=== PATIENT | female | born 1970 | race Caucasian/White ===

== ENCOUNTER → 2016-11-29 | Emergency (ER) | payer OTHER ==
[~2016-11-29] VITALS: Ht 149.9 cm; Wt 83.1 kg
[~2016-11-29] MED LIST: CARAFATE1 GM PO; PRILOSEC OTC20 MG PO
[2016-11-29 11:35] LABS: BASOPHIL COUNT 0.1 K/uL (0-0.1); EOSINOPHIL (%) 1.1 % (0-5); EOSINOPHIL COUNT 0.1 K/uL (0-0.3); HEMATOCRIT 40.3 % (36.0-46.0); IMMATURE GRANULOCYTE (%) 0.5 % (0.0-0.7); IMMATURE GRANULOCYTE COUNT 0.5 K/uL; LYMPHOCYTE COUNT 2.1 K/uL (1.0-2.8); MCH 30.6 PG (29.0-34.0); MCHC 34.7 G/DL (30.0-36.0); MEAN PLAT.VOLUME 10.3 uM^3 (9.5-12.4); MONOCYTE (%) 5.8 % (3-12); MONOCYTE COUNT 0.6 K/uL (0-0.8); NEUTROPHIL COUNT 7.9 K/uL (1.8-6.4); PLATELET COUNT 322 K/uL (156-360); RBC DIS.WIDTH-CV 12.2 % (11.8-14.6); RBC DIS.WIDTH-SD 38.4 % (39-53); RED BLOOD COUNT 4.58 M/uL (3.80-5.20); WHITE BLOOD COUNT 10.8 K/uL (4.1-10.2)
[2016-11-29 11:46] LABS: CHLORIDE 104 mEq/L (99-109); POTASSIUM 3.9 mEq/L (3.7-5.4); SODIUM 138 mEq/L (136-147)
[2016-11-29 11:48] LABS: GLUCOSE 326 mg/dL (70-99)
[2016-11-29 11:49] LABS: ANION GAP 10 MEQ/L (2-14)
[2016-11-29 11:50] LABS: TOTAL BILIRUBIN 0.3 mg/dL (0.0-1.0)
[2016-11-29 11:52] LABS: ALKALINE PHOSPHATASE 72 IU/L (3-129); GFR ESTIMATE (CALCULATED) > 59 mL/min/
[2016-11-29 11:53] LABS: UREA NITROGEN (BUN) 12 mg/dL (9-23)
[2016-11-29 12:01] LABS: TROP-I INTERPRETATION NEGATIVE; TROPONIN-I < 0.01 ng/mL (0.0-0.30)
[2016-11-29 14:32] LABS: TROP-I INTERPRETATION NEGATIVE; TROPONIN-I < 0.01 ng/mL (0.0-0.30)
[2016-11-29 17:46] VITALS: BP 151/81
== END | disposition home or self-care (01) ==
LOC: EME 10:46
PROVIDERS: Emergency Medicine
DX: R07.9 Chest pain, unspecified (principal); Z88.1 Allergy status to other antibiotic agents; Z88.2 Allergy status to sulfonamides; E11.9 Type 2 diabetes mellitus without complications
CPT/HCPCS: 71010; 80053; 84484; 85025; 85379; 93005; 99281; 99285

== ENCOUNTER 2017-01-16 17:41 | Inpatient (IN) | payer OTHER ==
[~2017-01-16] VITALS: Ht 149.9 cm; Wt 82.0 kg
[2017-01-16 18:33] LABS: BASOPHIL COUNT 0.1 K/uL (0-0.1); EOSINOPHIL (%) 0.6 % (0-5); EOSINOPHIL COUNT 0.1 K/uL (0-0.3); HEMATOCRIT 43.1 % (36.0-46.0); IMMATURE GRANULOCYTE (%) 1.1 % (0.0-0.7); IMMATURE GRANULOCYTE COUNT 0.2 K/uL; LYMPHOCYTE COUNT 1.6 K/uL (1.0-2.8); MCH 29.8 PG (29.0-34.0); MCHC 33.2 G/DL (30.0-36.0); MCV 89.8 FL (83-99); MEAN PLAT.VOLUME 9.8 uM^3 (9.5-12.4); MONOCYTE (%) 9.5 % (3-12); MONOCYTE COUNT 1.9 K/uL (0-0.8); NEUTROPHIL (%) 80.4 % (45-76); PLATELET COUNT 449 K/uL (156-360); RBC DIS.WIDTH-CV 11.5 % (11.8-14.6); RBC DIS.WIDTH-SD 38.2 % (39-53); WHITE BLOOD COUNT 19.9 K/uL (4.1-10.2)
[2017-01-16 18:42] LABS: CHLORIDE 96 mEq/L (99-109); POTASSIUM 4.1 mEq/L (3.7-5.4); SODIUM 133 mEq/L (136-147)
[2017-01-16 18:44] LABS: GLUCOSE 330 mg/dL (70-99)
[2017-01-16 18:45] LABS: ANION GAP 14 MEQ/L (2-14)
[2017-01-16 18:48] LABS: GFR ESTIMATE (CALCULATED) > 59 mL/min/
[2017-01-16 18:49] LABS: UREA NITROGEN (BUN) 10 mg/dL (9-23)
[2017-01-16 20:20] LABS: QUANTITATIVE HCG < 4.0 MIU/ML
[2017-01-16 20:46] LABS: ADD MIUA? YES; BILIRUBIN NEGATIVE; BLOOD NEGATIVE; COLOR YELLOW ((YELLOW)); GLUCOSE (STRIP) >=500; KETONES 20; LEUKOCYTES SMALL; NITRITE NEGATIVE; PROTEIN (STRIP) 30; SPECIFIC GRAVITY 1.042 (1.000-1.030); UROBILINOGEN 0.2 MG/DL (0.2-1.0)
[2017-01-16 20:54] LABS: BACTERIA RARE /HPF; EPITHELIAL CELLS 1+ /HPF; MUCUS TRACE /LPF; UCUL ADDED? NO
[2017-01-16] MEDS ORDERED: BACTRIM,SEPT1 TABLET PO (21:19)
[2017-01-16] MEDS ORDERED: ADVIL,NUPRIN,M200 MG PO (21:20)
[2017-01-16 23:00] VITALS: BP 156/72
[2017-01-16 23:04] VITALS: BP 156/72
[2017-01-17 04:05] VITALS: BP 106/56
[2017-01-17 11:18] VITALS: BP 122/58
[2017-01-17 16:46] VITALS: BP 124/75
[2017-01-17 19:52] VITALS: BP 121/63
[2017-01-18 00:10] VITALS: BP 121/58
[2017-01-18 05:33] LABS: BASOPHIL COUNT 0.1 K/uL (0-0.1); EOSINOPHIL (%) 1.8 % (0-5); EOSINOPHIL COUNT 0.3 K/uL (0-0.3); HEMATOCRIT 34.8 % (36.0-46.0); IMMATURE GRANULOCYTE (%) 1.6 % (0.0-0.7); IMMATURE GRANULOCYTE COUNT 0.3 K/uL; INSTRUMENT ABS NEUTROPHIL CT 11.7 K/uL; LYMPHOCYTE COUNT 2.2 K/uL (1.0-2.8); MCH 29.4 PG (29.0-34.0); MCHC 32.5 G/DL (30.0-36.0); MCV 90.6 FL (83-99); MEAN PLAT.VOLUME 9.8 uM^3 (9.5-12.4); MONOCYTE (%) 8.6 % (3-12); MONOCYTE COUNT 1.4 K/uL (0-0.8); NEUTROPHIL (%) 73.9 % (45-76); NEUTROPHIL COUNT 11.7 K/uL (1.8-6.4); PLATELET COUNT 397 K/uL (156-360); RBC DIS.WIDTH-CV 11.5 % (11.8-14.6); RBC DIS.WIDTH-SD 38.4 % (39-53); RED BLOOD COUNT 3.84 M/uL (3.80-5.20); WHITE BLOOD COUNT 15.8 K/uL (4.1-10.2)
[2017-01-18 05:51] LABS: ANION GAP 10 MEQ/L (2-14); CHLORIDE 103 MEQ/L (99-109); GLUCOSE 289 mg/dL (70-99); POTASSIUM 3.6 MEQ/L (3.7-5.4); SAMPLE HEMOLYSIS CHECK 0; SAMPLE ICTERIC CHECK 0; SAMPLE LIPEMIA CHECK 0; SODIUM 136 MEQ/L (136-147); UREA NITROGEN (BUN) 8 mg/dL (9-23)
[2017-01-18 05:55] LABS: GFR ESTIMATE (CALCULATED) > 59 mL/min/
[2017-01-18 07:54] VITALS: BP 132/69
[2017-01-18 16:00] VITALS: BP 123/61
[2017-01-18 19:44] VITALS: BP 141/65
[2017-01-18 22:08] LABS: POINT-OF-CARE METER ID UU14149397
[2017-01-19 00:48] VITALS: BP 135/70
[2017-01-19 03:55] VITALS: BP 149/76
[2017-01-19 04:41] LABS: BASOPHIL COUNT 0.1 K/uL (0-0.1); EOSINOPHIL (%) 2.2 % (0-5); EOSINOPHIL COUNT 0.3 K/uL (0-0.3); HEMATOCRIT 34.3 % (36.0-46.0); IMMATURE GRANULOCYTE (%) 2.7 % (0.0-0.7); IMMATURE GRANULOCYTE COUNT 0.4 K/uL; INSTRUMENT ABS NEUTROPHIL CT 9.9 K/uL; LYMPHOCYTE COUNT 2.7 K/uL (1.0-2.8); MCH 29.5 PG (29.0-34.0); MCHC 33.2 G/DL (30.0-36.0); MCV 88.6 FL (83-99); MEAN PLAT.VOLUME 9.7 uM^3 (9.5-12.4); MONOCYTE (%) 9.4 % (3-12); MONOCYTE COUNT 1.4 K/uL (0-0.8); NEUTROPHIL (%) 66.9 % (45-76); NEUTROPHIL COUNT 9.9 K/uL (1.8-6.4); PLATELET COUNT 436 K/uL (156-360); RBC DIS.WIDTH-CV 11.5 % (11.8-14.6); RBC DIS.WIDTH-SD 36.6 % (39-53); RED BLOOD COUNT 3.87 M/uL (3.80-5.20); WHITE BLOOD COUNT 14.8 K/uL (4.1-10.2)
[2017-01-19 04:58] LABS: CHLORIDE 103 mEq/L (99-109); POTASSIUM 3.7 mEq/L (3.7-5.4); SODIUM 138 mEq/L (136-147)
[2017-01-19 04:59] LABS: GLUCOSE 240 mg/dL (70-99)
[2017-01-19 05:01] LABS: ANION GAP 10 MEQ/L (2-14)
[2017-01-19 05:03] LABS: GFR ESTIMATE (CALCULATED) > 59 mL/min/
[2017-01-19 05:04] LABS: UREA NITROGEN (BUN) 8 mg/dL (9-23)
[2017-01-19 07:35] VITALS: BP 129/60
[2017-01-19 09:25] LABS: POINT-OF-CARE METER ID UU14149397
[2017-01-19 12:06] LABS: POINT-OF-CARE METER ID UU14149397
[2017-01-19 14:52] VITALS: BP 118/59
[2017-01-19 16:15] LABS: POINT-OF-CARE METER ID UU14149397
[2017-01-19 20:57] VITALS: BP 152/76
[2017-01-19 22:10] LABS: POINT-OF-CARE METER ID UU14149397
[2017-01-19 23:13] VITALS: BP 126/66
[2017-01-20 06:22] VITALS: BP 133/65
[2017-01-20 09:53] LABS: POINT-OF-CARE METER ID UU13113675
[2017-01-20 11:18] LABS: BASOPHIL COUNT 0.1 K/uL (0-0.1); EOSINOPHIL (%) 2.3 % (0-5); EOSINOPHIL COUNT 0.3 K/uL (0-0.3); HEMATOCRIT 37.6 % (36.0-46.0); IMMATURE GRANULOCYTE COUNT 0.7 K/uL; INSTRUMENT ABS NEUTROPHIL CT 10.3 K/uL; LYMPHOCYTE COUNT 2.4 K/uL (1.0-2.8); MCH 29.4 PG (29.0-34.0); MCV 89.1 FL (83-99); MEAN PLAT.VOLUME 9.6 uM^3 (9.5-12.4); NEUTROPHIL (%) 69.4 % (45-76); NEUTROPHIL COUNT 10.3 K/uL (1.8-6.4); PLATELET COUNT 501 K/uL (156-360); RBC DIS.WIDTH-CV 11.5 % (11.8-14.6); RBC DIS.WIDTH-SD 37.2 % (39-53); RED BLOOD COUNT 4.22 M/uL (3.80-5.20); WHITE BLOOD COUNT 14.8 K/uL (4.1-10.2)
[2017-01-20 11:40] LABS: ANION GAP 9 MEQ/L (2-14); CHLORIDE 99 MEQ/L (99-109); GFR ESTIMATE (CALCULATED) > 59 mL/min/; GLUCOSE 250 mg/dL (70-99); POTASSIUM 3.6 MEQ/L (3.7-5.4); SAMPLE HEMOLYSIS CHECK 0; SAMPLE ICTERIC CHECK 0; SAMPLE LIPEMIA CHECK 0; SODIUM 135 MEQ/L (136-147); UREA NITROGEN (BUN) 8 mg/dL (9-23)
[2017-01-20 11:50] VITALS: BP 139/72
[2017-01-20 12:00] LABS: POINT-OF-CARE METER ID UU14149397
[2017-01-20 15:53] VITALS: BP 114/58
[2017-01-20 16:20] LABS: POINT-OF-CARE METER ID UU14149397
[2017-01-21 00:40] VITALS: BP 120/70
[2017-01-21 05:25] VITALS: BP 124/68
[2017-01-21 07:11] LABS: POINT-OF-CARE METER ID UU14149397
[2017-01-21 08:13] VITALS: BP 107/68
[2017-01-21 15:21] VITALS: BP 139/65
[2017-01-21 22:43] LABS: POINT-OF-CARE METER ID UU14149397
[2017-01-21 23:53] VITALS: BP 135/70
[2017-01-22 06:02] LABS: BASOPHIL COUNT 0.1 K/uL (0-0.1); EOSINOPHIL COUNT 0.4 K/uL (0-0.3); HEMATOCRIT 38.3 % (36.0-46.0); IMMATURE GRANULOCYTE COUNT 0.6 K/uL; INSTRUMENT ABS NEUTROPHIL CT 9.5 K/uL; LYMPHOCYTE COUNT 2.8 K/uL (1.0-2.8); MCH 29.2 PG (29.0-34.0); MCHC 32.4 G/DL (30.0-36.0); MCV 90.3 FL (83-99); MEAN PLAT.VOLUME 9.6 uM^3 (9.5-12.4); MONOCYTE (%) 8.1 % (3-12); MONOCYTE COUNT 1.2 K/uL (0-0.8); NEUTROPHIL (%) 65.4 % (45-76); NEUTROPHIL COUNT 9.5 K/uL (1.8-6.4); PLATELET COUNT 495 K/uL (156-360); RBC DIS.WIDTH-CV 11.8 % (11.8-14.6); RBC DIS.WIDTH-SD 38.5 % (39-53); RED BLOOD COUNT 4.24 M/uL (3.80-5.20); WHITE BLOOD COUNT 14.5 K/uL (4.1-10.2)
[2017-01-22 06:39] LABS: ANION GAP 9 MEQ/L (2-14); CHLORIDE 98 MEQ/L (99-109); GFR ESTIMATE (CALCULATED) > 59 mL/min/; GLUCOSE 211 mg/dL (70-99); SAMPLE HEMOLYSIS CHECK 0; SAMPLE ICTERIC CHECK 0; SAMPLE LIPEMIA CHECK 0; SODIUM 136 MEQ/L (136-147); UREA NITROGEN (BUN) 13 mg/dL (9-23)
[2017-01-22 06:40] LABS: POTASSIUM 4.5 MEQ/L (3.7-5.4)
[2017-01-22 06:54] LABS: POINT-OF-CARE METER ID UU14188577
[2017-01-22 08:26] VITALS: BP 122/60
[2017-01-22] MEDS ORDERED: DOXYCYCLINE HY100 MG PO (09:11)
[2017-01-22] MEDS ORDERED: NORCO 5/3251 TABLET PO (09:11)
[2017-01-22] MEDS ORDERED: TOLNAFTATE TP (09:11)
[2017-01-22 11:47] LABS: POINT-OF-CARE METER ID UU14188577
== END 2017-01-22 16:39 | disposition home health service (06) | DRG 348 ==
LOC: EME 17:41 → EDOF 21:16 → 3EAST 21:16
PROVIDERS: Emergency Medicine; Physician Assistant Surgical; Surgery
PROC: 0D9Q7ZZ Drainage of Anus, Via Natural or Artificial Opening (ICD-10-PCS; principal; 2017-01-17)
PROC: 0J9M3ZZ Drainage of Left Upper Leg Subcutaneous Tissue and Fascia, Percutaneous Approach (ICD-10-PCS; 2017-01-20)
DX: K61.0 Anal abscess (principal); L03.317 Cellulitis of buttock; L02.31 Cutaneous abscess of buttock; L02.416 Cutaneous abscess of left lower limb; E11.9 Type 2 diabetes mellitus without complications
CPT/HCPCS: 74177; 80048; 81003; 82948; 83605; 84702; 85025; 87040; 87070; 87075; 87076; 87077; 87147; 87186; 87205; 88305; 99281; 99285; J0690; J1815; J2250; J2270; J2405; J3010; J3370; J7030; J7050; S0020

== ENCOUNTER 2017-02-03 15:42 | Inpatient (IN) | payer OTHER ==
[~2017-02-03] VITALS: Ht 124.5 cm; Wt 84.0 kg
[~2017-02-03 15:42] MED LIST changes: +ADVIL,NUPRIN,M200 MG PO; +BACTRIM,SEPT1 TABLET PO; +DOXYCYCLINE HY100 MG PO; +NORCO 5/3251 TABLET PO; +TOLNAFTATE TP
[2017-02-03 16:31] LABS: HEMATOCRIT 42.7 % (36.0-46.0); MCH 29.4 PG (29.0-34.0); MCHC 32.6 G/DL (30.0-36.0); MCV 90.3 FL (83-99); PLATELET COUNT 387 K/uL (156-360); RBC DIS.WIDTH-CV 12.2 % (11.8-14.6); RBC DIS.WIDTH-SD 39.8 % (39-53); RED BLOOD COUNT 4.73 M/uL (3.80-5.20)
[2017-02-03 16:37] LABS: CHLORIDE 97 mEq/L (99-109); POTASSIUM 4.2 mEq/L (3.7-5.4); SODIUM 136 mEq/L (136-147)
[2017-02-03 16:39] LABS: GLUCOSE 369 mg/dL (70-99)
[2017-02-03 16:40] LABS: ANION GAP 18 MEQ/L (2-14)
[2017-02-03 16:43] LABS: GFR ESTIMATE (CALCULATED) 57 mL/min/
[2017-02-03 16:44] LABS: UREA NITROGEN (BUN) 13 mg/dL (9-23)
[2017-02-03] MEDS ORDERED: VIBRAMYCIN100 MG PO (17:47)
[2017-02-03 21:17] LABS: CREATINE KINASE 106 IU/L (1-294)
[2017-02-03 21:58] VITALS: BP 139/64
[2017-02-03 23:27] LABS: POINT-OF-CARE METER ID UU14162508
[2017-02-04 03:31] VITALS: BP 126/67
[2017-02-04 06:19] LABS: BASOPHIL COUNT 0.1 K/uL (0-0.1); EOSINOPHIL (%) 3.7 % (0-5); EOSINOPHIL COUNT 0.3 K/uL (0-0.3); HEMATOCRIT 34.7 % (36.0-46.0); IMMATURE GRANULOCYTE (%) 0.4 % (0.0-0.7); INSTRUMENT ABS NEUTROPHIL CT 5.1 K/uL; LYMPHOCYTE COUNT 1.8 K/uL (1.0-2.8); MCH 29.4 PG (29.0-34.0); MCV 91.8 FL (83-99); MONOCYTE (%) 9.1 % (3-12); MONOCYTE COUNT 0.7 K/uL (0-0.8); NEUTROPHIL (%) 63.9 % (45-76); NEUTROPHIL COUNT 5.1 K/uL (1.8-6.4); NRBC (%) 0.2 /100 WBC (0-0); PLATELET COUNT 343 K/uL (156-360); RBC DIS.WIDTH-CV 12.6 % (11.8-14.6); RBC DIS.WIDTH-SD 41.6 % (39-53)
[2017-02-04 06:38] LABS: ANION GAP 10 MEQ/L (2-14); CHLORIDE 103 MEQ/L (99-109); RED BLOOD COUNT 3.78 M/uL (3.80-5.20); SAMPLE HEMOLYSIS CHECK 0; SAMPLE ICTERIC CHECK 0; SAMPLE LIPEMIA CHECK 0; SODIUM 135 MEQ/L (136-147)
[2017-02-04 06:44] LABS: GFR ESTIMATE (CALCULATED) > 59 mL/min/; GLUCOSE 275 mg/dL (70-99); UREA NITROGEN (BUN) 13 mg/dL (9-23)
[2017-02-04 06:54] LABS: POINT-OF-CARE METER ID UU14162508
[2017-02-04 07:22] LABS: Estimated Average Glucose 278 mg/dL (70-123); HEMOGLOBIN A1c (GLYCOHEMOGLOB) 11.3 % HGB (Below 5.7)
[2017-02-04 08:35] VITALS: BP 128/60
[2017-02-04 11:40] VITALS: BP 127/68
[2017-02-04 12:29] LABS: POINT-OF-CARE METER ID UU14162508
[2017-02-04 15:40] VITALS: BP 132/70
[2017-02-04 16:20] LABS: POINT-OF-CARE METER ID UU14162508
[2017-02-04 20:46] VITALS: BP 128/69
[2017-02-04 21:36] LABS: POINT-OF-CARE METER ID UU14162508
[2017-02-05 00:25] VITALS: BP 160/84
[2017-02-05 04:16] VITALS: BP 122/75
[2017-02-05 06:37] LABS: HEMATOCRIT 36.5 % (36.0-46.0); MCH 29.9 PG (29.0-34.0); MCHC 33.2 G/DL (30.0-36.0); MCV 90.1 FL (83-99); MEAN PLAT.VOLUME 10.3 uM^3 (9.5-12.4); PLATELET COUNT 371 K/uL (156-360); RBC DIS.WIDTH-CV 12.3 % (11.8-14.6); RBC DIS.WIDTH-SD 40.4 % (39-53); RED BLOOD COUNT 4.05 M/uL (3.80-5.20); WHITE BLOOD COUNT 8.2 K/uL (4.1-10.2)
[2017-02-05 06:54] LABS: POINT-OF-CARE METER ID UU14162508
[2017-02-05 07:03] LABS: ANION GAP 11 MEQ/L (2-14); CHLORIDE 104 MEQ/L (99-109); GFR ESTIMATE (CALCULATED) > 59 mL/min/; GLUCOSE 138 mg/dL (70-99); POTASSIUM 3.5 MEQ/L (3.7-5.4); SAMPLE HEMOLYSIS CHECK 0; SAMPLE ICTERIC CHECK 0; SAMPLE LIPEMIA CHECK 0; SODIUM 138 MEQ/L (136-147); UREA NITROGEN (BUN) 10 mg/dL (9-23)
[2017-02-05 07:21] VITALS: BP 120/57
[2017-02-05 11:58] LABS: POINT-OF-CARE METER ID UU14162508
[2017-02-05 15:45] VITALS: BP 136/72
[2017-02-05 15:59] LABS: POINT-OF-CARE METER ID UU14162508
[2017-02-05 21:33] LABS: POINT-OF-CARE METER ID UU14162508
[2017-02-05 23:37] VITALS: BP 152/71
[2017-02-06 06:44] LABS: POINT-OF-CARE METER ID UU14162508
[2017-02-06 07:32] VITALS: BP 113/54
[2017-02-06 12:10] LABS: POINT-OF-CARE METER ID UU14162508
[2017-02-06] MEDS ORDERED: FLUCONAZOLE200 MG PO (13:05)
[2017-02-06] MEDS ORDERED: KEFLEX500 MG PO (13:05)
[2017-02-06] MEDS ORDERED: NYSTATIN15 GM TP (13:05)
[2017-02-06] MEDS ORDERED: LEVEMIR100 UNIT/2 SC (13:05)
[2017-02-06] MEDS ORDERED: ONE TOUCH ULTR1 EACH MC (13:07)
[2017-02-06] MEDS ORDERED: ONE TOUCH LANC1 EACH MC (13:07)
[2017-02-06] MEDS ORDERED: ONE TOUCH ULTR1 EAC4 MC (13:07)
[2017-02-06] MEDS ORDERED: VALTREX1000 MG PO (14:13)
[2017-02-06] MEDS ORDERED: INSULIN SYRING1 EA53 MC (15:06)
== END 2017-02-06 15:20 | disposition home or self-care (01) | DRG 394 ==
LOC: EME 15:42 → 2EAST 20:34 → EDOF 20:34 → 2EAST 21:57
PROVIDERS: Hospitalist; Internal Medicine; Physician Assistant
DX: K61.1 Rectal abscess (principal); E87.2 Acidosis; L02.31 Cutaneous abscess of buttock; Z68.43 Body mass index [BMI] 50.0-59.9, adult; B37.49 Other urogenital candidiasis; L29.0 Pruritus ani; E11.65 Type 2 diabetes mellitus with hyperglycemia; E66.9 Obesity, unspecified; K61.0 Anal abscess; B35.6 Tinea cruris; Z88.2 Allergy status to sulfonamides; Z88.3 Allergy status to other anti-infective agents; Z82.49 Family history of ischemic heart disease and other diseases of the circulatory system; Z83.3 Family history of diabetes mellitus; Z83.6 Family history of other diseases of the respiratory system
CPT/HCPCS: 74177; 80048; 81003; 82550; 82948; 83036; 83605; 85025; 85027; 86695 90; 86696 90; 87040; 87254; 99281; 99285; J0690; J0692; J1650; J1815; J1885; J2270; J2405; J3010; J3370; J7030; J7040; J7050